=== PATIENT | male | born 1990 | race Hispanic/Latino ===

== ENCOUNTER 2018-08-13 19:44 | Emergency (ER) | payer SELFPAY ==
[2018-08-13 21:02] LABS: Urine Blood NEGATIVE (NEG); Urine Glucose NEGATIVE (NEG); Urine Protein NEGATIVE (NEG); Urine Specific Gravity 1.025 (1.005-1.030)
--- NOTE | 2018-08-13 21:13 | RAD REPORT ---
EXAM DESCRIPTION: US - Scrotum Testicles - 08/13/2018 9:05 pm CLINICAL HISTORY: PAIN COMPARISON: No comparisons FINDINGS: The right testicle 4.7 x 3.2 x 2.0 cm. No intratesticular masses or evidence of testicular torsion. The left testicle 4.3 x 3.2 x 1.7 cm. No intratesticular masses or evidence of testicular torsion. Both epididymides are normal in size and appearance. No pathologic fluid collections. IMPRESSION: Unremarkable study.
[2018-08-13 21:20] LABS: Calcium Oxalate Crystals- Ur FEW (NONE SEEN); Urine Bacteria NONE SEEN /HPF (NONE SEEN); Urine Culture Reflex Order NOT NEEDED; Urine RBC <5 /HPF (NONE SEEN)
--- NOTE | 2018-08-13 21:34 | ER ---
Nurse's Notes [facility] Name: Karson Villegas Age: 28 yrs Sex: Male : 1990 Arrival Date: 08/13/2018 Time: 19:52 Bed 14 Private MD: Diagnosis: left testicular pain Presentation: 08/13 19:52 Presenting complaint: Patient states: Left testicle pain for one week but worsening. la1 Transition of care: patient was not received from another setting of care. Onset of symptoms was August 13, 2018. Risk Assessment: Do you want to hurt yourself or someone else? Patient reports no desire to harm self or others. Initial Sepsis Screen: Does the patient meet any 2 criteria? No. Patient's initial sepsis screen is negative. Does the patient have a suspected source of infection? No. Patient's initial sepsis screen is negative. Care prior to arrival: None. 19:52 Method Of Arrival: Ambulatory la1 19:52 Acuity: ANA 3 la1 Historical: - Allergies: 19:52 No Known Allergies; la1 - PMHx: 19:52 None; la1 - Immunization history:: Adult Immunizations up to date. - Social history:: Smoking status: Patient uses tobacco products, smokes one pack cigarettes per day. - Ebola Screening: : No symptoms or risks identified at this time. Screenin:19 Abuse screen: Denies threats or abuse. Nutritional screening: No deficits noted. jb4 Tuberculosis screening: No symptoms or risk factors identified. Fall Risk None identified. Assessment: 20:19 General: Appears in no apparent distress. comfortable, Behavior is calm, cooperative, jb4 appropriate for age. Pain: Complains of pain in groin Pain does not radiate. Pain currently is 9 out of 10 on a pain scale. Quality of pain is described as pressure, Pain began 2-3 days ago. Neuro: Level of Consciousness is awake, alert, obeys commands, Oriented to person, place, time, situation. Cardiovascular: Patient's skin is warm and dry. Respiratory: Airway is patent Respiratory effort is even, unlabored, Respiratory pattern is regular, symmetrical. GI: Reports diarrhea, nausea. : Genitalia appear normal on penis on scrotum Reports pain in left testicle. EENT: No signs and/or symptoms were reported regarding the EENT system. Derm: Skin is intact, Skin is pink, warm \T\ dry. Musculoskeletal: Circulation, motion, and sensation intact. 21:31 Reassessment: Patient appears in no apparent distress at this time. Patient and/or jb4 family updated on plan of care and expected duration. Pain level reassessed. Patient is alert, oriented x 3, equal unlabored respirations, skin warm/dry/pink. Vital Signs: 19:53 Pulse 86; Resp 16; Temp 97.4; Pulse Ox 98% on R/A; Weight 86.64 kg; Height 5 ft. 11 in. la1 (180.34 cm); 19:54 BP 118 / 83; la1 21:31 BP 122 / 84; Pulse 76; Resp 16; Pulse Ox 98% on R/A; jb4 19:53 Body Mass Index 26.64 (86.64 kg, 180.34 cm) la1 ED Course: 19:52 Patient arrived in ED. la1 19:53 Triage completed. la1 19:53 Arm band placed on right wrist. la1 20:00 Adam Odom RN is Primary Nurse. jb4 20:30 Patient has correct armband on for positive identification. Placed in gown. Bed in low jb4 position. Call light in reach. Side rails up X 1. Pulse ox on. NIBP on. 20:33 Rolando Bobby MD is Attending Physician. gs 20:42 Urine Microscopic Only Sent. ds4 21:03 US Scrotum Testicles In Process Unspecified. EDMS 21:29 Singh Alfred MD is Referral Physician. gs 21:48 No provider procedures requiring assistance completed. Patient did not have IV access jb4 during this emergency room visit. Administered Medications: No medications were administered Outcome: 21:33 Discharge ordered by . gs 21:48 Discharged to home ambulatory. jb4 21:48 Condition: stable 21:48 Discharge instructions given to patient, Instructed on discharge instructions, follow up and referral plans. medication usage, Demonstrated understanding of instructions, follow-up care, medications, Prescriptions given X 1. 21:49 Patient left the ED. jb4 Signatures: Dispatcher [employer] EDMS Fuad Henao ds4 Karlo Arroyo RN RN la1 Adam Odom RN RN jb4 Rolando Bobby MD MD Corrections: (The following items were deleted from the chart) 19:54 19:53 Pulse 86bpm; Resp 16bpm; Pulse Ox 98% RA; Temp 97.4F; 86.64 kg; Height 5 ft. 11 la1 in.; BMI: 26.6; la1 21:48 21:30 Patient has correct armband on for positive identification. Placed in gown. Bed jb4 in low position. Call light in reach. Side rails up X 1. jb4 21:48 21:30 Pulse ox on. NIBP on. jb4 jb4
--- NOTE | 2018-08-13 21:34 | EDPHYS ---
Physician Documentation [facility] Name: Karson Villegas Age: 28 yrs Sex: Male : 1990 Arrival Date: 08/13/2018 Time: 19:52 Bed 14 Private MD: ED Physician Rolando Bobby HPI: 08/13 21:22 This 28 yrs old Male presents to ER via Ambulatory with unknown complaint. gs 21:22 The patient presents with scrotal pain, of the left side. Onset: The symptoms/episode gs began/occurred 1 week(s) ago. Modifying factors: The symptoms are alleviated by nothing, the symptoms are aggravated by nothing. Associated signs and symptoms: Pertinent negatives: hematuria. Associated signs and symptoms: Pertinent negatives: dysuria, discharge. Severity of symptoms: At their worst the symptoms were moderate, in the emergency department the symptoms are unchanged. The patient has not experienced similar symptoms in the past. Historical: - Allergies: 19:52 No Known Allergies; la1 - PMHx: 19:52 None; la1 - Immunization history:: Adult Immunizations up to date. - Social history:: Smoking status: Patient uses tobacco products, smokes one pack cigarettes per day. - Ebola Screening: : No symptoms or risks identified at this time. ROS: 21:22 All other systems are negative. gs Exam: 21:22 Head/Face: Normocephalic, atraumatic. Eyes: Pupils equal round and reactive to light, gs extra-ocular motions intact. Lids and lashes normal. Conjunctiva and sclera are non-icteric and not injected. Cornea within normal limits. Periorbital areas with no swelling, redness, or edema. ENT: Nares patent. No nasal discharge, no septal abnormalities noted. Tympanic membranes are normal and external auditory canals are clear. Oropharynx with no redness, swelling, or masses, exudates, or evidence of obstruction, uvula midline. Mucous membranes moist. Neck: Trachea midline, no thyromegaly or masses palpated, and no cervical lymphadenopathy. Supple, full range of motion without nuchal rigidity, or vertebral point tenderness. No Meningismus. Chest/axilla: Normal chest wall appearance and motion. Nontender with no deformity. No lesions are appreciated. Cardiovascular: Regular rate and rhythm with a normal S1 and S2. No gallops, murmurs, or rubs. Normal PMI, no JVD. No pulse deficits. Respiratory: Lungs have equal breath sounds bilaterally, clear to auscultation and percussion. No rales, rhonchi or wheezes noted. No increased work of breathing, no retractions or nasal flaring. Back: No spinal tenderness. No costovertebral tenderness. Full range of motion. Skin: Warm, dry with normal turgor. Normal color with no rashes, no lesions, and no evidence of cellulitis. MS/ Extremity: Pulses equal, no cyanosis. Neurovascular intact. Full, normal range of motion. Neuro: Awake and alert, GCS 15, oriented to person, place, time, and situation. Cranial nerves II-XII grossly intact. Motor strength 5/5 in all extremities. Sensory grossly intact. Cerebellar exam normal. Normal gait. 21:22 Constitutional: The patient appears alert, awake. 21:22 : Male external genitalia: swelling: is not appreciated, tenderness, is palpated in the left inguinal area, of the epididymis area, that is mild. Vital Signs: 19:53 Pulse 86; Resp 16; Temp 97.4; Pulse Ox 98% on R/A; Weight 86.64 kg; Height 5 ft. 11 in. la1 (180.34 cm); 19:54 BP 118 / 83; la1 21:31 BP 122 / 84; Pulse 76; Resp 16; Pulse Ox 98% on R/A; jb4 19:53 Body Mass Index 26.64 (86.64 kg, 180.34 cm) la1 MDM: 20:45 Patient medically screened. gs 21:22 Differential diagnosis: UTI, torsion epidydmitis. Data reviewed: vital signs, nurses gs notes. Response to treatment: the patient's symptoms have mildly improved after treatment. 08/13 20:34 Order name: Urine Microscopic Only; Complete Time: 21:28 gs 08/13 20:43 Order name: Urine Dipstick--Ancillary (enter results); Complete Time: 21:20 ds4 08/13 20:34 Order name: Urine Dipstick-Ancillary (obtain specimen); Complete Time: 20:40 gs 08/13 20:34 Order name: Scrotum Testicles; Complete Time: 21:20 gs Administered Medications: No medications were administered Disposition: 08/13/18 21:33 Discharged to Home. Impression: left testicular pain. - Condition is Stable. - Discharge Instructions: Testicular Self-Exam. - Prescriptions for Naprosyn 500 mg Oral Tablet - take 1 tablet by ORAL route 2 times per day take with food; 20 tablet. - Medication Reconciliation Form, Thank You Letter, Antibiotic Education, Prescription Opioid Use form. - Follow up: Singh Alfred MD; When: 2 - 3 days; Reason: Re-evaluation by your physician. Signatures: Dispatcher [employer] EDSD Karlo Arroyo RN RN la1 Adam Odom RN RN jb4 Rolando Bobby MD MD gs Corrections: (The following items were deleted from the chart) 21:49 21:33 08/13/2018 21:33 Discharged to Home. Impression: left testicular pain. Condition jb4 is Stable. Forms are Medication Reconciliation Form, Thank You Letter, Antibiotic Education, Prescription Opioid Use. Follow up: Singh Alfred; When: 2 - 3 days; Reason: Re-evaluation by your physician. gs
== END 2018-08-13 21:49 | disposition home or self-care (01) ==
LOC: ER 19:44
DX: N50.812 Left testicular pain (principal); F17.210 Nicotine dependence, cigarettes, uncomplicated
CPT/HCPCS: 76870; 81003; 81015; 99284